=== PATIENT | female | born 1985 | race Caucasian/White ===

== ENCOUNTER 2019-02-11 11:00 | Inpatient (IN) | payer OTHER ==
[~2019-02-11] VITALS: Ht 162.6 cm; Wt 94.5 kg
[~2019-02-11 11:00] MED LIST: ACET325T33 PO; FERR325T5 PO; IBUP800T48 PO; IRON45TA2 PO; PREN1TAB17 PO
[2019-02-11] MEDS ORDERED: LACTATED RINGER'S 1,000 ML IV SCH ×2 (11:08→22:57)
[2019-02-11 11:11] VITALS: Ht 162.6 cm; Wt 94.5 kg
[2019-02-11] MEDS ORDERED: CEFAZOLIN 2 GM/50 ML (PMX) 50 ML IVPB SCH (11:30)
[2019-02-11] MEDS ORDERED: CARBOPROST 250 MCG INJ IM PRN ×2 (11:30→23:00)
[2019-02-11] MEDS ORDERED: OXYTOCIN 30 UNITS/LR 500 ML IV PRN ×2 (11:30→23:00)
[2019-02-11] MEDS ORDERED: MISOPROSTOL 200 MCG TAB PR PRN ×2 (11:30→23:00)
[2019-02-11] MEDS ORDERED: METHYLERGONOVINE 0.2 MG INJ IM PRN ×2 (11:30→23:00)
[2019-02-11] MEDS ORDERED: AZITHROMYCIN 500MG/NS (PMX) 250 ML IV SCH (11:30)
[2019-02-11 11:32] VITALS: BP 101/58; PULSE 74; RESP 18
[2019-02-11] MEDS ORDERED: CITRIC ACID/NA CITRATE 30 ML CUP PO ONE (13:50)
[2019-02-11] MEDS ORDERED: CITRIC ACID/NA CITRATE 30 ML CUP ONE (13:52)
[2019-02-11] MEDS ORDERED: EPHEDrine 25 MG/5 ML SYG ONE (16:01)
[2019-02-11] MEDS ORDERED: morphine SULFATE/PF (10 MG/10 ML) INJ ONE (16:02)
[2019-02-11] MEDS ORDERED: KETOROLAC 30 MG INJ ONE (16:02)
[2019-02-11] MEDS ORDERED: METOCLOPRAMIDE 10 MG INJ ONE (16:02)
[2019-02-11] MEDS ORDERED: PHENYLephrine (100 MCG/ML) 10ML SYG ONE (16:19)
[2019-02-11] MEDS ORDERED: OXYTOCIN 30 UNITS/LR 500 ML IV ONE (17:04)
[2019-02-11] MEDS ORDERED: ACETAMINOPHEN 500 MG TAB PO STA (17:24)
[2019-02-11] MEDS ORDERED: KETOROLAC 30 MG INJ IV STA (17:24)
[2019-02-11] MEDS ORDERED: AZITHROMYCIN 500MG/NS (PMX) 250 ML IVPB ONE (17:30)
[2019-02-11] MEDS ORDERED: KETOROLAC 30 MG INJ IV PRN (18:00)
[2019-02-11] MEDS ORDERED: ONDANSETRON 4 MG INJ IV PRN ×2 (18:00)
[2019-02-11] MEDS ORDERED: NALOXONE (0.4 MG/ML) INJ IV PRN (18:00)
[2019-02-11] MEDS ORDERED: morphine 2 MG INJ IV PRN ×6 (18:00)
[2019-02-11] MEDS ORDERED: DIPHENHYDRAMINE 50 MG INJ IV PRN (18:00)
[2019-02-11] MEDS: OXYTOCIN 30 UNITS/LR 500 ML IV SCH ×2 (18:26→23:52)
[2019-02-11] MEDS ORDERED: METHYLERGONOVINE 0.2 MG INJ IM ONE (18:30)
[2019-02-11] MEDS ORDERED: CARBOPROST 250 MCG INJ IM ONE (18:38)
[2019-02-11] MEDS ORDERED: EPHEDrine 25 MG/5 ML SYG IV PRN (18:55)
[2019-02-11 20:30] VITALS: BP 94/57; PULSE 75; RESP 18
[2019-02-11 21:15] VITALS: BP 131/53; PULSE 77; RESP 18
[2019-02-11] MEDS ORDERED: LANOLIN HPA 1 PKT TOP PRN (23:00)
[2019-02-11] MEDS ORDERED: NA PHOSPHATE/BIPHOS 133 ML ENEMA PR PRN (23:00)
[2019-02-11] MEDS: CEFAZOLIN 2 GM/50 ML (PMX) 50 ML IVPB SCH (23:54)
[2019-02-11] MEDS: CLINDAMYCIN 300 MG CAP PO SCH (23:54)
[2019-02-12 00:01] VITALS: BP 98/50; PULSE 90; RESP 18
[2019-02-12] MEDS: DIPHENHYDRAMINE 50 MG INJ IV PRN ×2 (00:45→00:55)
[2019-02-12] MEDS: KETOROLAC 30 MG INJ IV PRN ×2 (00:46→12:06)
[2019-02-12] MEDS: OXYTOCIN 30 UNITS/LR 500 ML IV SCH ×6 (01:34→22:14)
[2019-02-12] MEDS: CLINDAMYCIN 300 MG CAP PO SCH ×3 (06:46→18:22)
[2019-02-12] MEDS: CEFAZOLIN 2 GM/50 ML (PMX) 50 ML IVPB SCH ×2 (07:21→13:32)
[2019-02-12 08:15] VITALS: BP 90/54; PULSE 89; RESP 18
[2019-02-12] MEDS: SENNA/DOCUSATE NA (8.6MG/50MG) TAB PO SCH ×2 (09:00→20:27)
[2019-02-12] MEDS ORDERED: BISACODYL 10 MG SUPP PR ONE (10:30)
[2019-02-12 12:11] VITALS: BP 95/56; PULSE 88; RESP 18
[2019-02-12 15:51] VITALS: BP 94/54; PULSE 82; RESP 16
[2019-02-12] MEDS: HYDROCODONE/APAP (5/325) TAB PO PRN (16:36)
[2019-02-12 20:00] VITALS: BP 90/56; PULSE 80; RESP 18
[2019-02-12] MEDS: OXYCODONE/ACETAMINOPHEN (5/325) TAB PO PRN (20:28)
[2019-02-12] MEDS: IBUPROFEN 800 MG TAB PO SCH (22:30)
[2019-02-13] MEDS: CLINDAMYCIN 300 MG CAP PO SCH ×4 (00:34→17:16)
[2019-02-13] MEDS: HYDROCODONE/APAP (5/325) TAB PO PRN ×2 (01:38→17:17)
[2019-02-13] MEDS: OXYTOCIN 30 UNITS/LR 500 ML IV SCH (02:14)
[2019-02-13 04:14] VITALS: BP 92/53; PULSE 78; RESP 18
[2019-02-13] MEDS: IBUPROFEN 800 MG TAB PO SCH ×3 (05:32→21:28)
[2019-02-13 08:00] VITALS: BP 86/51; PULSE 69; RESP 17
[2019-02-13] MEDS: SENNA/DOCUSATE NA (8.6MG/50MG) TAB PO SCH ×2 (09:30→21:00)
[2019-02-13] MEDS: OXYCODONE/ACETAMINOPHEN (5/325) TAB PO PRN (10:07)
[2019-02-13 16:01] VITALS: BP 90/55; PULSE 77; RESP 18
[2019-02-13] MEDS ORDERED: ACETAMINOPHEN 325 MG TAB PO PRN (17:30)
[2019-02-13 20:20] VITALS: BP 92/53; PULSE 79; RESP 18
[2019-02-14] MEDS: CLINDAMYCIN 300 MG CAP PO SCH ×3 (00:55→11:30)
[2019-02-14] MEDS: OXYCODONE/ACETAMINOPHEN (5/325) TAB PO PRN ×2 (02:18→11:29)
[2019-02-14 04:15] VITALS: BP 96/52; PULSE 72; RESP 18
[2019-02-14] MEDS: HYDROCODONE/APAP (5/325) TAB PO PRN (05:00)
[2019-02-14] MEDS: IBUPROFEN 800 MG TAB PO SCH (06:06)
[2019-02-14 08:30] VITALS: BP 93/51; PULSE 72; RESP 18
[2019-02-14] MEDS ORDERED: DIPHTH/TET/ACEL PERTUSS (ADULT) 0.5 ML VIAL IM* ONE (09:00)
[2019-02-14] MEDS: SENNA/DOCUSATE NA (8.6MG/50MG) TAB PO SCH (09:00)
[2019-02-14] MEDS ORDERED: MEASLES,MUMPS,RUBELLA VACCINE INJ SC* ONE (09:00)
== END 2019-02-14 14:07 | disposition home or self-care (01) | DRG 788 ==
LOC: L-D 11:00 → PP1 20:11
PROVIDERS: ADMIT Obstetrics & Gynecology; ATTEND Obstetrics & Gynecology
PROC: 10D00Z1 Extraction of Products of Conception, Low, Open Approach (ICD-10-PCS; principal; 2019-02-11 14:00)
DX: O34.211 Maternal care for low transverse scar from previous cesarean delivery (principal); O99.214 Obesity complicating childbirth; E66.9 Obesity, unspecified; G89.18 Other acute postprocedural pain; Z3A.39 39 weeks gestation of pregnancy; Z37.0 Single live birth
CPT/HCPCS: 85025; 85610; 85730; 86592; 86850; 86900; 86901; 87340; 99464; J0456; J0690; J1200; J1885; J2210; J2274; J2370; J2405; J2590; J2765; J7120